=== PATIENT | male | born 1940 | race Caucasian/White ===

== ENCOUNTER 2021-06-23 17:33 | Observation (INO) ==
[2021-06-23] MEDS ORDERED: Naloxone 0.4 MG/ML INJ IVP PRN (23:44)
[2021-06-23] MEDS ORDERED: Ondansetron 4 MG/2 ML VIAL IVP PRN (23:44)
[2021-06-23] MEDS ORDERED: 0.9 % Sodium Chloride 1,000 ML IVC SCH (23:45)
[2021-06-24 06:38] LABS: Hematocrit 32.9 % (37.5-50.1); Hemoglobin 10.5 g/dL (12.9-16.9); Mean Corpuscular HGB Conc 31.9 g/dL (31.6-35.5); Mean Corpuscular Hemoglobin 31.7 pg (28.0-33.3); Mean Corpuscular Volume 99.4 fL (83.0-100.0); Mean Platelet Volume 11.8 fL (9.4-12.4); Platelet Count 181 K/mcL (140-400); Red Blood Count 3.31 M/mcL (4.19-5.50); Red Cell Distribution Width 14.4 % (11.5-14.5); White Blood Count 5.5 K/mcL (4.3-11.1)
[2021-06-24 07:37] LABS: Troponin I < 0.03 ng/mL (< 0.04)
[2021-06-24 07:58] LABS: Folate 11.4 ng/mL (3.0-16.0)
[2021-06-24 08:00] LABS: Estimated Average Glucose 177 mg/dl; Hemoglobin A1C 7.8 %
[2021-06-24 08:16] LABS: % Iron Saturation 23 % (20-55); Ferritin 38 ng/mL (20-250); Iron 70 mcg/dL (65-175); Transferrin 217 mg/dL (203-362)
[2021-06-24 08:20] LABS: BUN/Creatinine Ratio 21 (6-26); Blood Urea Nitrogen 16 mg/dL (8-23); Calcium 8.6 mg/dL (8.6-10.3); Carbon Dioxide 27 mEq/L (23-29); Chloride 108 mEq/L (98-107); Chol/HDL Ratio 4.5 (0-4.9); Cholesterol 76 mg/dL (< 200); Glucose 92 mg/dL (70-105); HDL Cholesterol 17 mg/dL (40-59); LDL Cholesterol,Calculated 43 mg/dL (< 100); Osmolality,Calculated 289 (280-300); Sodium 139 mEq/L (136-145); Triglycerides 78 mg/dL (< 150); eGFR For African Americans > 60 (> 60); eGFR For Non-African Americans > 60 (> 60)
[2021-06-24] MEDS: QUEtiapine Fumarate 25 MG TABLET PO SCH (20:46)
[2021-06-24] MEDS ORDERED: Melatonin 3 MG TABLET PO ONE (22:05)
[2021-06-25 01:16] LABS: Basophils % 0.2 %; Eosinophils # 0.2 K/mcL (0.0-0.6); Eosinophils % 2.7 %; Hematocrit 33.1 % (37.5-50.1); Hemoglobin 10.7 g/dL (12.9-16.9); Immature Granulocytes % 0.3 % (0-4); Lymphocytes # 2.3 K/mcL (0.6-4.6); Lymphocytes % 36.8 %; Mean Corpuscular HGB Conc 32.3 g/dL (31.6-35.5); Mean Corpuscular Hemoglobin 31.7 pg (28.0-33.3); Mean Corpuscular Volume 97.9 fL (83.0-100.0); Mean Platelet Volume 12.3 fL (9.4-12.4); Monocytes % 15.2 %; Neutrophils # 2.8 K/mcL (1.6-8.9); Platelet Count 188 K/mcL (140-400); Red Blood Count 3.38 M/mcL (4.19-5.50); Red Cell Distribution Width 14.2 % (11.5-14.5); Segmented Neutrophils % 44.8 %; White Blood Count 6.3 K/mcL (4.3-11.1)
[2021-06-25 01:34] LABS: BUN/Creatinine Ratio 20 (6-26); Blood Urea Nitrogen 17 mg/dL (8-23); Calcium 8.8 mg/dL (8.6-10.3); Carbon Dioxide 28 mEq/L (23-29); Chloride 106 mEq/L (98-107); Glucose 212 mg/dL (70-105); Osmolality,Calculated 296 (280-300); Potassium 4.1 mEq/L (3.5-5.1); Sodium 139 mEq/L (136-145); eGFR For African Americans > 60 (> 60); eGFR For Non-African Americans > 60 (> 60)
[2021-06-25] MEDS: Folic Acid 1 MG TABLET PO SCH (12:08)
[2021-06-25] MEDS: Thiamine (B-1) 100 MG TABLET PO SCH (12:08)
[2021-06-25] MEDS: QUEtiapine Fumarate 25 MG TABLET PO SCH (22:29)
[2021-06-26] MEDS: Folic Acid 1 MG TABLET PO SCH (08:22)
[2021-06-26] MEDS: Thiamine (B-1) 100 MG TABLET PO SCH (08:22)
[2021-06-26] MEDS: QUEtiapine Fumarate 25 MG TABLET PO SCH (21:15)
[2021-06-27] MEDS: Thiamine (B-1) 100 MG TABLET PO SCH (07:55)
[2021-06-27] MEDS: Folic Acid 1 MG TABLET PO SCH (07:55)
[2021-06-27] MEDS: QUEtiapine Fumarate 25 MG TABLET PO SCH ×2 (10:22→21:23)
[2021-06-27] MEDS: Acetaminophen 325 MG TABLET PO PRN (21:23)
[2021-06-28] MEDS: Folic Acid 1 MG TABLET PO SCH (09:05)
[2021-06-28] MEDS: Thiamine (B-1) 100 MG TABLET PO SCH (09:05)
[2021-06-28] MEDS: QUEtiapine Fumarate 25 MG TABLET PO SCH ×2 (09:05→22:09)
[2021-06-28] MEDS: Haloperidol Lactate 5 MG/ML VIAL IM PRN (17:12)
[2021-06-28] MEDS: Acetaminophen 325 MG TABLET PO PRN (22:09)
[2021-06-29] MEDS: Thiamine (B-1) 100 MG TABLET PO SCH (09:03)
[2021-06-29] MEDS: Folic Acid 1 MG TABLET PO SCH (09:03)
[2021-06-29] MEDS: QUEtiapine Fumarate 25 MG TABLET PO SCH ×2 (09:04→20:35)
[2021-06-30] MEDS: Folic Acid 1 MG TABLET PO SCH (10:31)
[2021-06-30] MEDS: QUEtiapine Fumarate 25 MG TABLET PO SCH ×2 (10:31→20:02)
[2021-06-30] MEDS: Thiamine (B-1) 100 MG TABLET PO SCH (10:31)
[2021-07-01] MEDS: Haloperidol Lactate 5 MG/ML VIAL IM PRN (08:23)
[2021-07-01] MEDS: Folic Acid 1 MG TABLET PO SCH (08:30)
[2021-07-01] MEDS: QUEtiapine Fumarate 25 MG TABLET PO SCH ×2 (08:30→20:55)
[2021-07-01] MEDS: Thiamine (B-1) 100 MG TABLET PO SCH (08:31)
[2021-07-02] MEDS: Thiamine (B-1) 100 MG TABLET PO SCH (08:54)
[2021-07-02] MEDS: Folic Acid 1 MG TABLET PO SCH (08:55)
[2021-07-02] MEDS: QUEtiapine Fumarate 25 MG TABLET PO SCH ×2 (08:55→20:04)
[2021-07-02] MEDS: Haloperidol Lactate 5 MG/ML VIAL IM PRN (11:25)
[2021-07-02 23:14] LABS: Influenza A PCR Negative (Negative); Influenza B PCR Negative (Negative); Resp. Syncytial Virus PCR Negative (Negative)
[2021-07-02 23:15] LABS: SARS-CoV-2 by PCR (In House) Negative (Negative)
[2021-07-03] MEDS: QUEtiapine Fumarate 25 MG TABLET PO SCH ×2 (09:19→21:21)
[2021-07-03] MEDS: Folic Acid 1 MG TABLET PO SCH (09:19)
[2021-07-03] MEDS: Thiamine (B-1) 100 MG TABLET PO SCH (09:19)
[2021-07-04 02:00] VITALS: BP 154/82; PULSE 93; TEMP 98.2; O2SAT 92
[2021-07-04] MEDS: Thiamine (B-1) 100 MG TABLET PO SCH (08:59)
[2021-07-04] MEDS: QUEtiapine Fumarate 25 MG TABLET PO SCH (09:00)
[2021-07-04] MEDS: Folic Acid 1 MG TABLET PO SCH (09:00)
== END 2021-07-04 10:29 ==
LOC: 3ANU → SUATTDRO 21:02 → 3ANU 06-24 15:08
PROVIDERS: ADMIT Hospitalist; ATTEND Internal Medicine